=== PATIENT | female | born 1970 | race Caucasian/White ===

== ENCOUNTER 2020-07-31 11:29 | Outpatient (CLI) | payer OTHER, SELFPAY ==
--- NOTE | 2020-07-31 11:38 | XR_ITS ---
WS: [id number] Lumbar spine, 3 views, 07/31/2020 Clinical Data: ARTHRALGIA/ACUTE SACROILITIS/BACK PAIN W/RADICULOPATHY Comparison: None. Findings: No compression fractures or subluxation is seen. No disc space narrowing is seen. The transverse proc esses and SI joints are normal. Minimal anterior osteoarthritic spurring is seen with all the lumbar vertebral bodies. 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
== END 2020-07-31 11:30 | disposition home or self-care (01) ==
PROVIDERS: PCP Electrodiagnostic Medicine; Visit Provider Electrodiagnostic Medicine
DX: M25.50 Pain in unspecified joint (principal); M46.1 Sacroiliitis, not elsewhere classified; M54.16 Radiculopathy, lumbar region; M47.816 Spondylosis without myelopathy or radiculopathy, lumbar region
CPT/HCPCS: 72100